=== PATIENT | male | born 1950 | race Two or more races ===

== ENCOUNTER 2020-08-11 11:02 | Emergency (ER) | payer MEDICARE, OTHER ==
[~2020-08-11] VITALS: Ht 167.6 cm; Wt 100.0 kg
[2020-08-11 11:33] LABS: GLUCOSE,POINT OF CARE 226 MG/DL (70-110)
[2020-08-11 12:00] LABS: BASOPHILS % (AUTO) 1.4 % (0.0-2.0); CREATININE 1.57 mg/dL (0.60-1.30); HEMATOCRIT 44.4 % (41-53); HEMOGLOBIN 14.6 g/dL (13.5-17.5); LYMPHOCYTES # (AUTO) 2.5 K/uL (1.0-4.8); LYMPHOCYTES % (AUTO) 24.3 % (22.0-44.0); MEAN CORPUSCULAR HEMOGLOBIN 31.7 pg (26.0-34.0); MEAN CORPUSCULAR HGB CONC 32.8 G/dL (31.0-37.0); MEAN CORPUSCULAR VOLUME 97 fL (80-100); MONOCYTES # (AUTO) 0.8 K/uL (0.1-1.0); MONOCYTES % (AUTO) 7.6 % (2.0-9.0); NEUTROPHILS # (AUTO) 6.4 K/uL (1.8-7.7); NEUTROPHILS % (AUTO) 62.7 % (40.0-70.0); PLATELET COUNT (AUTO) 357 K/uL (150-450); POTASSIUM 4.3 mmol/L (3.5-5.1); RED BLOOD CELL COUNT(AUTO) 4.59 MIL/uL (4.50-5.90); RED CELL DISTRIBUTION WIDTH 13.8 % (11.5-14.5)
[2020-08-11] MEDS: ASPIRIN 81 MG CHEWABLE TABLET PO ONE (12:03)
[2020-08-11 12:06] LABS: ALBUMIN 3.5 g/dL (3.4-5.0); BILIRUBIN,TOTAL 0.8 mg/dL (0.1-1.0)
[2020-08-11 12:10] LABS: INR 1.1 (0.9-1.1); PROTHROMBIN TIME 11.3 SEC (9.4-11.6)
[2020-08-11] MEDS ORDERED: ACETAMINOPHEN 325 MG TABLET PO PRN ×2 (13:00)
[2020-08-11] MEDS ORDERED: ONDANSETRON HCL 4 MG/2 ML VIAL IVP PRN (13:00)
[2020-08-11] MEDS ORDERED: INSULIN LISPRO 100 UNITS/ML SQ PRN ×2 (13:00)
[2020-08-11] MEDS ORDERED: 0.9% SODIUM CHLORIDE 10 ML SYRINGE IVP PRN (13:00)
[2020-08-11] MEDS ORDERED: ATORVASTATIN CALCIUM 20 MG TABLET PO SCH (13:00)
[2020-08-11] MEDS ORDERED: DEXTROSE 50%-WATER 25 GM/50 ML SYRINGE IVP PRN ×2 (13:00)
[2020-08-11 13:01] VITALS: BP 106/61
[2020-08-11] MEDS: APIXABAN 5 MG TABLET PO ONE (13:23)
[2020-08-11] MEDS ORDERED: HEPARIN SODIUM,PORCINE 5,000 UNITS/ML VIAL SQ SCH (16:00)
[2020-08-11] MEDS ORDERED: DOCUSATE SODIUM 100 MG CAPSULE PO SCH (21:00)
[2020-08-12] MEDS ORDERED: FAMOTIDINE 20 MG TABLET PO SCH (09:00)
[2020-08-12] MEDS ORDERED: ASPIRIN 81 MG CHEWABLE TABLET PO SCH (09:00)
== END 2020-08-11 13:35 | disposition left against medical advice (07) ==
LOC: EMS 11:05
DX: I48.0 Paroxysmal atrial fibrillation (principal); R07.9 Chest pain, unspecified; G89.29 Other chronic pain; E11.9 Type 2 diabetes mellitus without complications; I10 Essential (primary) hypertension; Z86.73 Personal history of transient ischemic attack (TIA), and cerebral infarction without residual deficits; Z79.4 Long term (current) use of insulin
CPT/HCPCS: 93005; 36415-L1; 36415-TC; 71045-TC